=== PATIENT | male | born 1935 ===

== ENCOUNTER 2016-07-29 08:41 | Emergency (ER) | payer OTHER ==
[2016-07-29 08:47] VITALS: TEMP 97; O2SAT 98
[2016-07-29] MEDS ORDERED: Albuterol 0.083% Inhal Sol (2.5 mg/3 mL) UD INH ONE (09:58)
[2016-07-29 10:29] LABS: RBC URINE 1 /hpf (0-3); URINE BACTERIA RARE (<OCC); URINE BILIRUBIN NEGATIVE (NEGATIVE); URINE BLOOD NEGATIVE (NEGATIVE); URINE COLOR YELLOW (YELLOW); URINE GLUCOSE (UA) NEG (Normal); URINE KETONE NEGATIVE (NEGATIVE); URINE LEUKOCYTE ESTERASE NEG Leu/uL (Negative); URINE PROTEIN NEGATIVE (NEGATIVE); URINE UROBILINOGEN 0.2-1.0 mg/dL (0.2-1.0); WBC URINE < 1 /hpf (0-5)
--- NOTE | 2016-07-29 10:32 | CT ---
PROCEDURE: CT HEAD WITHOUT CONTRAST. HISTORY: Dizziness COMPARISON: 12/25/2015. TECHNIQUE: Axial computed tomography images were obtained through the head/brain without intravenous contrast. Radiation dose: Total exam DLP = 998.79 mGy-cm. This CT exam was performed using one or more of the following dose reduction techniques: Automated exposure control, adjustment of the mA and/or kV according to patient size, and/or use of iterative reconstruction technique. FINDINGS: HEMORRHAGE: No intracranial hemorrhage. BRAIN: There are mild chronic microangiopathic changes. There is no mass, mass effect or abnormal extra-axial fluid collection. There is no territorial infarction. VENTRICLES: There is mild age-related global parenchymal volume loss and proportionate enlargement of the ventricles and cortical sulci. CALVARIUM: Unremarkable. PARANASAL SINUSES: There is mild mucosal thickening in the right maxillary sinus. The remaining included paranasal sinuses are predominantly clear. MASTOID AIR CELLS: Predominantly clear. OTHER FINDINGS: None. IMPRESSION: No acute intracranial abnormality. Mild chronic microangiopathic changes and mild age-related global parenchymal volume loss.
[2016-07-29 10:38] LABS: BASO % 0.7 % (0.0-2.0); EOS # 0.2 K/uL (0.0-0.7); LYMPH # 1.3 K/uL (1.0-4.3); LYMPH % 27.2 % (20.0-40.0); MEAN CELL VOLUME 89.4 fl (80.0-94.0); MEAN CORPUSCULAR HEMOGLOBIN 29.9 pg (27.0-31.0); MEAN CORPUSCULAR HGB CONC 33.4 g/dL (33.0-37.0); MEAN PLATELET VOLUME 7.9 fl (7.2-11.7); MONO # 0.5 K/uL (0.0-0.8); NEUT # 2.7 K/uL (1.8-7.0); NEUT % 56.1 % (50.0-75.0); NRBC % 0.1 % (0.0-0.0); RED CELL DISTRIBUTION WIDTH 13.5 % (11.5-14.5); WHITE BLOOD COUNT 4.8 K/uL (4.8-10.8)
[2016-07-29 10:48] LABS: ALB/GLOB RATIO 1.5 (1.0-2.1); ALKALINE PHOSPHATASE 94 U/L (38-126); ALT/SGPT 64 U/L (21-72); AST/SGOT 44 U/L (17-59); BILIRUBIN,TOTAL 0.3 mg/dl (0.2-1.3); BLOOD UREA NITROGEN 24 mg/dl (9-20); CALCIUM 9.2 mg/dL (8.4-10.2); CARBON DIOXIDE 25 mmol/L (22-30); CHLORIDE 106 mmol/L (98-107); GFR AFRICAN-AMERICAN > 60; GLUCOSE,RANDOM 91 mg/dL (75-110); POTASSIUM 4.2 MMOL/L (3.6-5.0); SODIUM 141 mmol/l (132-148)
--- NOTE | 2016-07-29 11:06 | RAD ---
HISTORY: Cough COMPARISON: 08/10/2015 TECHNIQUE: Chest PA and lateral FINDINGS: LUNGS: The lungs are clear. PLEURA: No significant pleural effusion identified. No pneumothorax apparent. CARDIOVASCULAR: Normal. OSSEOUS STRUCTURES: No significant abnormalities. VISUALIZED UPPER ABDOMEN: Normal. OTHER FINDINGS: None. IMPRESSION: No active pulmonary disease.
--- NOTE | 2016-07-29 11:22 | ED PDOC ---
HPI: CCC, URI, Sore Throat Time Seen by Provider: 07/29/16 09:00 Chief Complaint (Nursing): Cough, Cold, Congestion History Per: Patient History/Exam Limitations: no limitations Onset/Duration Of Symptoms: Days Current Symptoms Are (Timing): Intermittent Episodes Location Of Pain: None Sick Contacts (Context): None Associated Symptoms: Cough. denies: Fever, Chills, Sore Throat, Sputum, Neck Pain, Sinus Drainage, Myalgias, Nasal Congestion, Nausea, Vomiting, Diarrhea Ear Symptoms: Bilateral: None Additional History Per: Patient Additional Complaint(s): 80 y/o male complaining of nonproductive cough x2 months and intermittent dizziness x1 month. He denies and chest pain, shortness of breath, fever, chills , nausea, vomiting, diarrhea, sore throat, or other complaint. Past Medical History Reviewed: Vital Signs Vital Signs: Last Vital Signs Temp 97 F L 07/29/16 09:02 Pulse 68 07/29/16 12:44 Resp 20 07/29/16 12:44 BP 136/85 07/29/16 12:44 Pulse Ox 98 07/29/16 12:44 - Medical History PMH: HTN Denies: Chronic Kidney Disease - Surgical History Surgical History: Back Surgery - Family History Family History: States: Unknown Family Hx - Social History Current smoker - smoking cessation education provided: No Alcohol: None Drugs: Denies - Home Medications Home Medications: Ambulatory Orders Medication Instructions Recorded Albuterol HFA [Ventolin HFA 90 1 - 2 puff IH Q4H PRN #1 bottle 07/29/16 mcg/actuation (8 g)] Lisinopril [Zestril] 20 mg PO DAILY 07/29/16 amLODIPine [Norvasc] 5 mg PO DAILY 07/29/16 - Allergies Allergies/Adverse Reactions: Allergies Allergy/AdvReac Type Severity Reaction Status Date / Time No Known Allergies Allergy Verified 07/29/16 09:10 Review of Systems ROS Statement: Except As Marked, All Systems Reviewed And Found Negative Respiratory: Positive for: Cough Neurological: Positive for: Dizziness Physical Exam - Physical Exam Appears: Positive for: Well, Non-toxic, No Acute Distress (no coughing during interview and exam) Skin: Positive for: Normal Color, Warm, Dry. Negative for: Diaphoresis ENT: Positive for: Normal ENT Inspection Cardiovascular/Chest: Positive for: Regular Rate, Rhythm. Negative for: Gallop , Murmur, Friction Rub Respiratory: Positive for: Normal Breath Sounds. Negative for: Rales, Rhonchi, Wheezing, Respiratory Distress Gastrointestinal/Abdominal: Positive for: Normal Exam, Bowel Sounds, Soft, Tenderness. Negative for: Guarding, Rebound Neurologic/Psych: Positive for: Alert, Oriented - Laboratory Results Result Diagrams: 07/29/16 10:33 07/29/16 10:33 - ECG O2 Sat by Pulse Oximetry: 98 (RA) Pulse Ox Interpretation: Normal Medical Decision Making Medical Decision Making: Initial Impression: cough rule out pneumonia, rule out Intracranial Process Initial Plan: - CT Head r/o Intracranial Process - CXR - r/o PNA - EKG - Albuterol 9:58am: CXR and CT Head are negative. 10:13am: Labs reviewed, no significant abnormality. Influenza screen is negative. pt feels better w nebulizer dx dizziness cough outpt follow up with pcp (clinic) rx albuterol i Scribe Attestation: Documented by Pearl Wadsworth acting as a scribe for Sharifa Smith MD. Scribe Attestation: All medical record entries made by the Scribe were at my direction and personally dictated by me. I have reviewed the chart and agree that the record accurately reflects my personal performance of the history, physical exam, medical decision making, and the department course for this patient. I have also personally directed, reviewed, and agree with the discharge instructions and disposition. Disposition - Clinical Impression Clinical Impression: Cough, Dizziness - Patient ED Disposition Is Patient to be Admitted: No Counseled Patient/Family Regarding: Studies Performed, Diagnosis, Need For Followup - Disposition Referrals: [facility] [Outside] [facility] [Outside] Disposition: Routine/Home Disposition Time: 11:00 Condition: IMPROVED Additional Instructions: follow up with your primary doctor in 1-2 days return to the ED with any worsening or concerning symptoms. Prescriptions: Albuterol HFA [Ventolin HFA 90 mcg/actuation (8 g)] 1 - 2 puff IH Q4H PRN #1 bottle PRN Reason: Wheezing Instructions: Chronic Cough (ED), Dizziness (ED) Print Language: ARABIC
[2016-07-29 12:46] VITALS: BP 136/85; PULSE 68; RESP 20
--- NOTE | 2016-07-29 17:27 | CARD ---
APPROVED REPORT EKG Measurement Heart [id number] <Conclusion> Sinus bradycardia Minimal voltage criteria for LVH, may be normal variant Borderline ECG
== END 2016-07-29 12:46 | disposition home or self-care (01) ==
LOC: H.ER 08:41
DX: R05 Cough (principal); R42 Dizziness and giddiness; I10 Essential (primary) hypertension